=== PATIENT | female | born 1965 | race African-American/Black ===

== ENCOUNTER 2018-10-14 05:17 | Day surgery (SDC) | payer BC ==
[2018-10-02 14:25] VITALS: BMI 29.9
--- NOTE | 2018-10-14 08:21 | HP ---
[facility] - Chief Complaint Chief Complaint: right knee pain - Past Medical History Allergies/Adverse Reactions: Allergies Allergy/AdvReac Type Severity Reaction Status Date / Time No Known Allergies Allergy Verified 10/02/18 14:25 ...LMP: 09/28/17 ...LMP Comment: POSTMENOPAUSAL - Current Medications Current Medications: Home Medications Medication Instructions Recorded Acetaminophen [Tylenol] 650 mg PO PRN PRN 10/02/18 Oxycodone HCl/Acetaminophen 1 tab PO Q6H #20 tablet MDD 4 10/14/18 [Percocet 5-325 mg Tablet] [facility] Physical Exam - Physical Examination General Appearance: Well Nourished, Well Developed, Alert & Oriented x3 ENT: Clear Lung: Normal air movement Heart: Regular rate & rhythm Extremities: Other (right knee- + swelling, + ttp, decr rom, + mcmurrays, nvi MRI + mmt) Neurological: Intact, Alert, Oriented [facility] Impression/Plan - Impression/Plan Impression: right knee internal derangement Operative Procedure: right knee arthroscopy Date to be Performed: 10/14/18
[2018-10-14] MEDS ORDERED: BUPIVACAINE HCL/PF 0.5% (5MG/ML) 10 ML VIAL ONE (10:02)
[2018-10-14] MEDS ORDERED: LIDOCAINE 1%-EPI 1:100,000 30 ML MDV IJ ONE (10:02)
[2018-10-14] MEDS ORDERED: DEXAMETHASONE SOD PHOSPHATE 4 MG/1 ML VIAL ONE (10:13)
[2018-10-14] MEDS ORDERED: PROPOFOL 20 ML ONE (10:13)
[2018-10-14] MEDS ORDERED: MIDAZOLAM HCL 2 MG/2 ML SINGLE DOSE VIAL ONE (10:14)
[2018-10-14] MEDS ORDERED: LIDOCAINE 1%/EPI 1:100000 (20 ML MULTI DOSE VIAL) IJ ONE (10:39)
[2018-10-14] MEDS ORDERED: BUPIVACAINE HCL/PF (5 MG/ML) 30 ML VIAL IJ ONE (10:39)
[2018-10-14] MEDS ORDERED: KETOROLAC TROMETHAMINE 30 MG/1 ML VIAL ONE (11:29)
[2018-10-14] MEDS ORDERED: KETOROLAC TROMETHAMINE 30 MG/1 ML VIAL IVPUSH ONE ×2 (11:35→11:55)
[2018-10-14] MEDS ORDERED: ONDANSETRON 4 MG/2 ML VIAL IVPUSH PRN (11:54)
[2018-10-14] MEDS ORDERED: oxyCODONE HCL 5 MG TABLET PO PRN ×2 (11:54)
[2018-10-14] MEDS ORDERED: LACTATED RINGERS SOLUTION 1,000 ML IV SCH (12:00)
--- NOTE | 2018-10-14 12:09 | OP ---
Operative Note - Note: Operative Date: 10/14/18 ([facility]) Pre-Operative Diagnosis: right knee internal derangement Operation: right knee arthroscopy with PMM, PLM Post-Operative Diagnosis: Same as Pre-op Surgeon: Kolby Gracia Anesthesiologist/CREMATOR: Liliya Wall Anesthesia: General, Local Specimens Removed: shavings Estimated Blood Loss (mls): 5 Operative Report Dictated: Yes
--- NOTE | 2018-10-14 12:25 | OP ---
DATE OF OPERATION: 10/14/2018 PREOPERATIVE DIAGNOSIS: Internal derangement, right knee. POSTOPERATIVE DIAGNOSIS: Internal derangement, right knee. PROCEDURE: Arthroscopy, right knee, partial medial and lateral meniscectomies. SURGICAL ATTENDING: Kolby Garcia MD ANESTHESIA: LMA. CLOSURE: 4-0 nylon. COMPLICATIONS: None. CONDITION: To recovery room in stable condition. DESCRIPTION OF OPERATIVE PROCEDURE: Patient was taken to the operating room on October 14, 2018. General anesthesia with LMA was administered by the anesthesiologist. Right lower extremity was prepped and draped in the usual sterile fashion. The medial and lateral infrapatellar portal sites were infiltrated with 1% Xylocaine with epinephrine. Both wounds were then made with a 15-blade followed by blunt trocar. The scope trocar was placed in the infrapatellar portal up into the suprapatellar pouch. The knee was inflated with a cocktail of 10 mL of 1% Xylocaine and 10 mL of 0.5% Marcaine and 20 mL of arthroscopic saline. The anesthetic was allowed to sit in the knee for a few minutes, and then, we proceeded with the procedure. The undersurface of the patella and trochlea were visualized to be intact. The medial and lateral gutters were visualized to be intact. With valgus stress on the knee, the medial compartment was entered. The medial meniscus was visualized and found to have a complex tear of its posterior horn. This was debrided back to smooth stable meniscal tissue. Due to the tightness of the knee and accessory, direct medial portal needed to be performed in order to gain access to the meniscus tear without damaging the articular cartilage. This was made with a spinal needle followed by a 15 blade and blunt trocar. This allowed biters and willis to come from their medial around the condyle to deal with the posterior medial meniscus tear, and this was debrided back to smooth, stable meniscal tissues. The medial femoral condyle was run and found to be basically intact, as did most of the tibial plateau. The tibial plateau did have some changes in its posterior medial quarter. At 90 degrees, the ACL was visualized, probed, and found to be intact. In the figure 4 position, lateral compartment was entered. The lateral meniscus had a complex tear of its mid portion. This was debrided back to smooth, stable meniscal tissues with a meniscal biter and arthroscopic shaver. The lateral tibial plateau had some grade 3-4 changes, as did the lateral femoral condyle, and any loose articular cartilage was debrided using the shaver. The knee was irrigated with copious amounts of irrigation. The portals were closed using 4-0 nylon. Prior to closure, 20 mL of 0.5% Marcaine was infused in the knee for postoperative analgesia. Sterile pressure dressing was placed over the knee. Patient awakened from anesthesia and transferred to recovery in stable condition. No complications. Estimated blood loss negligible. Isma [id number]
[2018-10-14 15:39] VITALS: BP 102/64; PULSE 66; TEMP 97.2
--- NOTE | 2018-10-15 18:34 | PATH ---
Surgical Pathology Report Patient Name: DIO HOPKINS [facility]. Rec. #: [id number] /Age/Gender: 1965 (Age: 52) / F Account: [id number] Location: [facility] SURGICAL Taken: 10/14/2018 Received: 10/14/2018 Reported: 10/15/2018 Physicians: Kolby Garcia M.D. Specimen(s) Received RIGHT KNEE SHAVINGS Clinical History Right knee tear Final Diagnosis KNEE SHAVINGS, RIGHT, ARTHROSCOPY: FRAGMENTS OF CARTILAGE, DENSE FIBROCONNECTIVE TISSUE, ADIPOSE TISSUE, AND SYNOVIUM. Electronically Signed Yesenia Ferguson M.D. Gross Description Received in formalin, labeled "right knee shavings," is a 5.0 x 4.5 x 0.4 cm. aggregate of riddle-yellow soft tissue fragments. A personal service representative portion is submitted in one cassette. /10/14/2018 saudi/10/14/2018
== END 2018-10-14 14:45 | disposition home or self-care (01) ==
LOC: JASU-SURG 05:17
PROVIDERS: ATTEND Orthopaedic Surgery
PROC: 0SBC4ZZ Excision of Right Knee Joint, Percutaneous Endoscopic Approach (ICD-10-PCS; 2018-10-14)
PROC: 0SBC4ZZ Excision of Right Knee Joint, Percutaneous Endoscopic Approach (ICD-10-PCS; principal; 2018-10-14 10:30)
DX: M23.221 Derangement of posterior horn of medial meniscus due to old tear or injury, right knee (principal); M23.261 Derangement of other lateral meniscus due to old tear or injury, right knee
CPT/HCPCS: 88304-TC; 94760